=== PATIENT | female | born 1945 | race Caucasian/White ===

== ENCOUNTER → 2016-10-25 | Outpatient (CLI) | payer OTHER ==
[~2016-10-25] MED LIST: ASPIRIN PO; BACTRIM DS TABL1 TAB PO; BONIVA150 MG PO; CALCIUM 500 + D1 TAB PO; CENTRUM PO; CIPRO PO; DIOVAN PO; LIPITOR; METFORMIN PO; MOBIC PO; NEBUMETONE PO; PRILOSEC PO; ROBAXIN500 MG PO; VICODIN PO; VYTORIN 10/40 T1 TAB PO; ZEBETA5 MG PO; ZOLOFT PO
--- NOTE | ~2016-10-25 | MY11 ---
[facility] A Service of [facility] RADIOLOGY TEXT RESULTS PATIENT: DARREL JACQUES LOCATION: [facility] #: [id number] : 41 UNIT #: [id number] AGE: [address]: Anders Weems MD SEX: F ORDER DR: [id number] [facility] [address] [place], [place] [address] [id number] O MR#: [id number] Acc #: [id number] NAME: DARREL JACQUES. : 1945 SEX: F STUDY DATE/TIME: 10/25/2016 11:06 UNIT: [facility] ROOM: STUDY DESCRIPTION: MY Mammogram Screening [facility] [place] Attending Physician: Anders Weems M.D. Referring Physician: Anders Weems M.D. Ordering Physician: Anders Weems M.D. Primary Care Physician: Anders Weems M.D. MEDICAL IMAGING REPORT This report is preliminary unless electronic signature is present EXAM Screening mammogram 10/25/2016 HISTORY 71-year-old who presents for routine screening. No current complaints. FINDINGS Routine digital screening views of breasts were obtained. Study is reviewed with an FDA-approved CAD device. Comparison made with 10/25/2015, 10/22/2014, 09/02/2012. Breast parenchyma shows scattered fibroglandular densities. No new masses or suspicious microcalcifications are seen. Benign intramammary lymph node upper outer right breast is stable. IMPRESSION Benign mammogram. Routine screen in one year recommended. Patients over the age of 40 are entered into a reminder system with target due date for the next mammogram. A result letter will also be sent to the patient. BIRADS: 2, benign findings. Dictated by... Javi Bray Jr., M.D. THIS IS AN ELECTRONICALLY VERIFIED REPORT Javi Bray Jr., M.D. at 10/26/2016 6:08 AM [facility] A Service [facility] RADIOLOGY TEXT RESULTS PATIENT: DARREL JACQUES LOCATION: [facility] #: [id number] : 41 UNIT #: [id number] AGE: [address]: Anders Weems MD SEX: F ORDER DR: MILEY/shamir TD: 10/25/2016 14:17 JOB #: [id number] MEDICAL IMAGING REPORT Page 1 of 1 COPY
== END | disposition home or self-care (01) ==
LOC: CWCC 10:25
DX: Z12.31 Encounter for screening mammogram for malignant neoplasm of breast (principal)
CPT/HCPCS: G0202